=== PATIENT | male | born 1985 | race Caucasian/White ===

== ENCOUNTER 2018-06-23 13:56 | Emergency (ER) | payer MEDICAID ==
[2018-06-23 14:23] LABS: PLATELET COUNT 248 10^3/uL (150-400)
--- NOTE | 2018-06-23 14:55 | EDPHY ---
H & P Time Seen by Provider: 06/23/18 14:43 HPI/ROS: CHIEF COMPLAINT: Suicidal ideation, with a gun HISTORY OF PRESENT ILLNESS: Patient brought himself here. He has suicidal ideation and drove up to [place] from [place] to get a gun that was at his girlfriend's place. His girlfriend and her mother apparently told him that he did not bring himself to the emergency department for suicidal ideation they would call the police. Patient denies any self injury or overdose today. History of migraines but is head is not hurting at this time. He has a history of seizures and said he had a seizure this morning and just feels tired now. REVIEW OF SYSTEMS: Eye: no change in vision ENT: no sore throat Cardiac: no chest pain or syncope Pulmonary: no cough or SOB Abdomen: no vomiting, diarrhea, abdominal pain Musculoskeletal: no back pain Skin: no rash Neuro: no headache Constitutional: no fever : no urinary symptoms A comprehensive 10 point review of systems is otherwise negative aside from elements mentioned in the history of present illness. PAST MEDICAL HISTORY: Seizure disorder on Keppra, traumatic brain injury with previous brain surgeries. Social history: Denies alcohol or drugs today. General Appearance: Alert and conversant, cooperative. Eyes: No scleral icterus. ENT, Mouth: Normal mucous membranes. Respiratory: Normal respiratory effort, breath sounds equal, lungs are clear to auscultation. Cardiovascular: Regular rate and rhythm. Gastrointestinal: Abdomen is soft and non tender. Neurological: Alert, face symmetric, normal motor and sensory in extremities. Skin: No laceration or abrasions. Musculoskeletal: No peripheral edema. Psychiatric: Suicidal ideation with fire arm as above. Emergency Department course/MDM: Patient placed on a mental health hold by myself for suicidal ideation with a plan to use a gun. Screening labs and mental health evaluation requested. The patient had a medical screening evaluation performed. There does not appear to be an acute emergent medical or surgical condition which would preclude psychiatric evaluation at this time. Mental health evaluation is requested at 1512. 1645: evaluation by DEBBIE Fallon, plan for inpatient psychiatric placement at this time. 2018: The patient will be transferred to [facility] for inpatient psychiatric hospital bed not available at this facility, in stable condition; accepting physician is Dr. Dunaway. EMTALA form completed. Smoking Status: Current every day smoker Constitutional: Initial Vital Signs Temperature (C) 37.1 C 06/23/18 13:58 Heart Rate 94 06/23/18 13:58 Respiratory Rate 16 06/23/18 13:58 Blood Pressure 126/82 H 06/23/18 13:58 O2 Sat (%) 98 06/23/18 13:58 O2 Delivery Mode Room Air Allergies/Adverse Reactions: Sulfa (Sulfonamide Antibiotics) Allergy (Unknown, Verified 06/23/18 14:01) as child zolpidem [From Ambien] Allergy (Unknown, Verified 06/23/18 14:01) Home Medications: Medication Instructions Recorded ALPRAZolam [Xanax 1 MG (*)] 1 mg PO BID 06/23/18 Amphet Asp and D/Amphet [Adderall 06/23/18 10 MG (*)] Mirtazapine [Remeron soltab 15 mg 15 mg PO DAILY 06/23/18 (*)] QUEtiapine FUMARATE [Seroquel 100 100 mg PO DAILY 06/23/18 mg (*)] levETIRAcetam [Keppra 500 mg (*)] 500 mg PO 06/23/18 Medical Decision Making Differential Diagnosis: Differential diagnosis considered for depression including functional and major depression, situational depression, medication side effect, drugs and alcohol abuse. - Data Points Laboratory Results: Laboratory Results 06/23/18 14:12 06/23/18 14:12 06/23/18 06/23/18 06/23/18 14:40 14:12 14:12 WBC RBC Hgb Hct MCV MCH MCHC RDW Plt Count MPV Neut % (Auto) Lymph % (Auto) Tripp % (Auto) Eos % (Auto) Baso % (Auto) Nucleat RBC Rel Count Absolute Neuts (auto) Absolute Lymphs (auto) Absolute Monos (auto) Absolute Eos (auto) Absolute Basos (auto) Absolute Nucleated RBC Immature Gran % Immature Gran # Sodium 143 mEq/L mEq/L (135-145) Potassium 3.9 mEq/L mEq/L (3.3-5.0) Chloride 105 mEq/L mEq/L (97-110) Carbon Dioxide 29 mEq/l mEq/l (22-31) Anion Gap 9 mEq/L mEq/L (6-14) BUN 8 mg/dL mg/dL (7-23) Creatinine 0.9 mg/dL mg/dL (0.7-1.3) Estimated GFR > 60 Glucose 69 mg/dL L mg/dL (70-100) Calcium 9.5 mg/dL mg/dL (8.5-10.4) Urine Opiates Screen NEGATIVE (NEGATIVE) Acetaminophen < 10 mcg/mL L mcg/mL (10-30) Urine Barbiturates NEGATIVE (NEGATIVE) Ur Phencyclidine Scrn NEGATIVE (NEGATIVE) Ur Amphetamine Screen NEGATIVE (NEGATIVE) U Benzodiazepines Scrn NEGATIVE (NEGATIVE) Urine Cocaine Screen NEGATIVE (NEGATIVE) U Marijuana (THC) Screen NON-NEGATIVE H (NEGATIVE) Ethyl Alcohol < 10 mg/dL mg/dL (0-10) 06/23/18 14:12 WBC 6.66 10^3/uL 10^3/uL (3.80-9.50) RBC 4.64 10^6/uL 10^6/uL (4.40-6.38) Hgb 14.4 g/dL g/dL (13.7-17.5) Hct 43.3 % % (40.0-51.0) MCV 93.3 fL fL (81.5-99.8) MCH 31.0 pg pg (27.9-34.1) MCHC 33.3 g/dL g/dL (32.4-36.7) RDW 14.7 % % (11.5-15.2) Plt Count 248 10^3/uL 10^3/uL (150-400) MPV 10.2 fL fL (8.7-11.7) Neut % (Auto) 64.1 % % (39.3-74.2) Lymph % (Auto) 25.2 % % (15.0-45.0) Tripp % (Auto) 8.3 % % (4.5-13.0) Eos % (Auto) 1.2 % % (0.6-7.6) Baso % (Auto) 0.9 % % (0.3-1.7) Nucleat RBC Rel Count 0.0 % % (0.0-0.2) Absolute Neuts (auto) 4.27 10^3/uL 10^3/uL (1.70-6.50) Absolute Lymphs (auto) 1.68 10^3/uL 10^3/uL (1.00-3.00) Absolute Monos (auto) 0.55 10^3/uL 10^3/uL (0.30-0.80) Absolute Eos (auto) 0.08 10^3/uL 10^3/uL (0.03-0.40) Absolute Basos (auto) 0.06 10^3/uL 10^3/uL (0.02-0.10) Absolute Nucleated RBC 0.00 10^3/uL 10^3/uL (0-0.01) Immature Gran % 0.3 % % (0.0-1.1) Immature Gran # 0.02 10^3/uL 10^3/uL (0.00-0.10) Sodium Potassium Chloride Carbon Dioxide Anion Gap BUN Creatinine Estimated GFR Glucose Calcium Urine Opiates Screen Acetaminophen Urine Barbiturates Ur Phencyclidine Scrn Ur Amphetamine Screen U Benzodiazepines Scrn Urine Cocaine Screen U Marijuana (THC) Screen Ethyl Alcohol Departure - Departure Disposition: Other Psych, Not [facility] Clinical Impression: Severe major depression Condition: Good Instructions: Depression (ED), Suicide Prevention (ED) Referrals: Kahlil Orellana MD [[facility] Primary Care Provider] - As per Instructions [facility],. [Clinic] - As per Instructions
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
[2018-06-23 22:50] VITALS: BP 141/85
--- NOTE | 2018-06-24 06:07 | ASMTTCLDSP ---
TLC Discharge Disposition Disposition: Answers: Transfer Disposition Notes: Notes: In consultation with [facility] ED physician, Ender Klein MD it was concurred that pt appears to meet 27-65 criteria requiring psychiatric hospitalization as pt appears to be at risk of harm to self due to a mental illness condition. Discharge Concerns/Recommendations: Notes: In consultation with [facility] ED physician, Ender Klein MD it was concurred that pt appears to meet 27-65 criteria requiring psychiatric hospitalization as pt appears to be at risk of harm to self due to a mental illness condition. Was patient given the Answers: Not applicable Inpatient Behavioral Health Prohibited Belongings List while in the ED? Type of Hold: Answers: M1/72-hour Hold Hold initiated by: Answers: Police For Transfers, Accepting [facility] Facility: For Transfers, Accepting Dr. Dunaway Psychiatrist: For Transfers, Reason 3N at capacity Patient is Being Transferred: Date Signed: 06/24/2018 06:06 AM Electronically Signed By:Jacob Marin
== END 2018-06-23 22:57 ==
LOC: EEVIPCON 13:56
DX: R45.851 Suicidal ideations (principal); F32.9 Major depressive disorder, single episode, unspecified; G40.909 Epilepsy, unspecified, not intractable, without status epilepticus; Z87.820 Personal history of traumatic brain injury; Z79.899 Other long term (current) drug therapy
CPT/HCPCS: 80305; G0480

== ENCOUNTER 2018-09-05 18:42 | Emergency (ER) | payer MEDICAID ==
[2018-09-05 18:47] VITALS: BP 144/94
--- NOTE | 2018-09-05 18:56 | EDPHY ---
H & P Stated Complaint: Refill meds Time Seen by Provider: 09/05/18 18:51 HPI/ROS: HPI: This is a 33-year-old male who presents with Chief Complaint: Request for medication refill Location: psych Quality: Medication refill Duration: 3 days Signs and Symptoms: no auditory hallucinations, no visual hallucinations, no suicidal ideation with a plan, no homicidal ideation, no paranoia Timing: Acute on chronic Severity: Mild Context: Patient has a history of traumatic brain injury status post 7 brain surgeries, depression presents with complaints of not having his medications for the last 3 days as he has been incarcerated. Patient reports that [facility] Patient is reluctant to tell me why he was incarcerated. Patient reports that he has an appointment tomorrow with [facility] in afternoon for ECT. He was advised to go to the emergency room for his regularly scheduled psych medications. He reports that he has not had a seizure in over 1 week, denies suicidal ideation, homicidal ideation, paranoia. He is an every day smoker but denies drug and alcohol use. Patient provided a medication list from 08/09/2018. Modifying Factors: None Comment: ROS: A comprehensive 10 system review of systems is otherwise negative aside from elements mentioned in the history of present illness. MEDICAL/SURGICAL/SOCIAL HISTORY: Medical history: Traumatic brain injury, seizure disorder Surgical history: 7 brain surgery Social history: Every day smoker. Family history noncontributory. CONSTITUTIONAL: Tidy, cooperative, polite, adult white male, awake and alert, no obvious distress HEENT: Atraumatic and normocephalic, PERRL, EOMI. Nares patent; no rhinorrhea; no nasal mucosal edema. Tympanic membranes clear. Oropharynx clear, no exudate and moist pink mucosa. Airway patent. No lymphadenopathy. No meningismus. Cardiovascular: Normal S1/S2, regular rate, regular rhythm, without murmur rub or gallop. PULMONARY/CHEST: Symmetrical and nontender. Clear to auscultation bilaterally. Good air movement. No accessory muscle usage. ABDOMEN: Soft, nondistended, nontender, no rebound, no guarding, no peritoneal signs, no masses or organomegaly. No CVAT. EXTREMITIES: 2/2 pulses, strength 5/5, no deformities, no clubbing, no cyanosis or edema. NEUROLOGICAL: no focal neuro deficits. GCS 15. Slight stuttering of speech noted. SKIN: Warm and dry, no erythema. no rash. Good capillary refill. PSYCH: Fair eye contact, no flight of ideas, organized thought process, good insight and judgment, no auditory hallucinations, no visual hallucinations, no suicidal ideation with a plan, no homicidal ideation, no paranoia Source: Patient Exam Limitations: No limitations - Personal History Current Tetanus/Diphtheria Vaccine: Yes Tetanus Vaccine Date: < 10 years - Medical/Surgical History Hx Asthma: No Hx Chronic Respiratory Disease: No Hx Diabetes: No Hx Cardiac Disease: No Hx Renal Disease: No Hx Cirrhosis: No Hx Alcoholism: No Hx HIV/AIDS: No Hx Splenectomy or Spleen Trauma: No Other PMH: TBI, 7 head surgeries. Psych - Social History Smoking Status: Current every day smoker Constitutional: Initial Vital Signs Temperature (C) 37.1 C 09/05/18 18:44 Heart Rate 115 H 09/05/18 18:44 Respiratory Rate 18 09/05/18 18:44 Blood Pressure 144/94 H 09/05/18 18:44 O2 Sat (%) 95 09/05/18 18:44 O2 Delivery Mode Room Air Allergies/Adverse Reactions: Sulfa (Sulfonamide Antibiotics) Allergy (Unknown, Verified 09/05/18 18:47) as child zolpidem [From Ambien] Allergy (Unknown, Verified 09/05/18 18:47) Home Medications: Medication Instructions Recorded ALPRAZolam [Xanax 1 MG (*)] 1 mg PO BID 06/23/18 Amphet Asp and D/Amphet [Adderall 06/23/18 10 MG (*)] Mirtazapine [Remeron soltab 15 mg 15 mg PO DAILY 06/23/18 (*)] QUEtiapine FUMARATE [Seroquel 100 100 mg PO DAILY 06/23/18 mg (*)] levETIRAcetam [Keppra 500 mg (*)] 500 mg PO 06/23/18 Amphetamine 09/05/18 oxyCODONE IR 09/05/18 Medical Decision Making ED Course/Re-evaluation: Vital signs reviewed and show mild tachycardia. Patient does not meet M1 hold or MIH criteria. Patient was given Seroquel, Keppra, Prazosin, Amitriptyline, hydroxyzine based on his medication list provided. He was not given Ativan or Adderall. Patient has no signs benzodiazepine withdrawal. Patient politely declined Benadryl which is scheduled for 50 mg every 8 hr. Patient will go to [facility] the morning for follow-up in his medications. Patient then has an appointment at [facility] for ECT tomorrow afternoon. This patient was seen under the supervision of my secondary supervising physician. I evaluated care for this patient with attending. Discussed this patient with Dr. Heath who did not see the patient. Differential Diagnosis: Differential diagnosis includes but is not limited to major depression, anxiety disorder, schizophrenia, bipolar disorder, intoxicant use, suicidal ideation, psychosis, annalee. - Data Points Medications Given: Discontinued Medications Diphenhydramine HCl (Benadryl) 50 mg PO EDNOW ONE Stop: 09/05/18 18:58 Last Admin: 09/05/18 19:07 Dose: Not Given Levetiracetam (Keppra) 500 mg PO EDNOW ONE Stop: 09/05/18 18:58 Last Admin: 09/05/18 19:07 Dose: 500 mg Quetiapine Fumarate (Seroquel) 400 mg PO EDNOW ONE Stop: 09/05/18 18:58 Last Admin: 09/05/18 19:07 Dose: 400 mg Departure - Departure Disposition: Home, Routine, Self-Care Clinical Impression: Has run out of medications, Seizure disorder Major depression Qualifiers: Major depression recurrence: recurrent Active/Remission status: currently active Major depression episode severity: unspecified Qualified Code(s): F33.9 - Major depressive disorder, recurrent, unspecified Condition: Good Instructions: Depression (ED), Epilepsy (ED) Additional Instructions: You have been given the appropriate medications at a need for this evening. Please go to [facility] tomorrow morning for follow-up and to obtain a prescription for your medications. Referrals: [facility],. [Clinic] - 5-7 days, call for appt. [facility] [Cl[facility]] - 09/06/18 10:00 am
[2018-09-05] MEDS ORDERED: diphenhydrAMINE 25 MG CAP PO ONE (18:57)
[2018-09-05] MEDS ORDERED: levETIRAcetam 500 MG TAB PO ONE (18:57)
[2018-09-05] MEDS ORDERED: QUEtiapine FUMARATE 200 MG TAB PO ONE (18:57)
[2018-09-05] MEDS ORDERED: AMITRIPTYLINE HCL 100 MG TAB PO ONE (18:59)
[2018-09-05] MEDS ORDERED: PRAZOSIN HCL 1 MG CAP PO ONE (18:59)
[2018-09-05] MEDS ORDERED: hydrOXYzine HCL 50 MG TAB PO ONE (18:59)
== END 2018-09-05 19:41 | disposition home or self-care (01) ==
DX: G40.909 Epilepsy, unspecified, not intractable, without status epilepticus (principal); F33.9 Major depressive disorder, recurrent, unspecified